=== PATIENT | female | born 1940 | race Caucasian/White ===

== ENCOUNTER 2018-08-19 11:24 | Observation (INO) | payer MEDICARE, OTHER ==
[~2018-08-19] VITALS: Ht 165.1 cm; Wt 56.3 kg
--- NOTE | 2018-08-19 11:36 | NUR ---
Pt brought in by EMS with "complaints of flu like symptoms for 2 to 3 weeks of nausea, vomitting, and soft stools yesterday with no appetite." Pt states, "I have a uti". Pt denies treatment for UTI by provider at this time. Pt denies cp, sob, trauma, blood in emesis, blood in urine or stool. Pt connected to all monitors. Pt is afebrile, tachycardic in the 90's, and spo2% between 88-92 % on room air. No requests at this time. All safety measures in place. Call light within reach. Warm blanket provided for comfort measures.
[2018-08-19] MEDS ORDERED: SODIUM CHLORIDE 0.9% 1,000 ML IV ONE (11:58)
[2018-08-19] MEDS ORDERED: SODIUM CHLORIDE FLUSH 10ML SYR IVF ONE (12:00)
[2018-08-19 12:29] LABS: BASOPHILS # (AUTO) 0.01 x10^3/uL (0-0.1); BASOPHILS % (AUTO) 0 % (0-1); EOSINOPHILS # (AUTO) 0.09 x10^3/uL (0-0.4); EOSINOPHILS % (AUTO) 2 % (1-7); LYMPHOCYTES # (AUTO) 1.18 x10^3/uL (1-3.4); LYMPHOCYTES % (AUTO) 20 % (22-44); MD NO; MEAN CORPUSCULAR HEMOGLOBIN 24.2 pg (27.0-34.8); MEAN CORPUSCULAR HGB CONC 31.7 g/dL (32.4-35.8); MEAN CORPUSCULAR VOLUME 76.4 fL (80-100); MEAN PLATELET VOLUME 8.1 fL (7.4-10.4); MONOCYTES % (AUTO) 10 % (2-9); NEUTROPHILS # (AUTO) 4.16 x10^3/uL (1.8-6.8); NEUTROPHILS % (AUTO) 69 % (42-75); PLATELET COUNT 315 x10^3/uL (130-400); RED BLOOD COUNT 4.94 x10^6/uL (3.82-5.3); RED CELL DISTRIBUTION WIDTH 19.1 % (9.6-15.2)
[2018-08-19 12:40] LABS: ALANINE AMINOTRANSFERASE 20 U/L (12-78); ALBUMIN 3.4 g/dL (3.4-5.0); ANION GAP 8 mmol/L (5-15); CALCIUM 9.2 mg/dL (8.5-10.1); CHLORIDE 103 mmol/L (98-107)
[2018-08-19 12:51] LABS: ALKALINE PHOSPHATASE 95 U/L (45-117); BILIRUBIN,TOTAL 0.5 mg/dL (0.2-1.0); CREATININE 0.61 mg/dL (0.55-1.02); THYROID STIMULATING HORMONE 0.056 mIU/L (0.358-3.740); TOTAL PROTEIN 6.9 g/dL (6.4-8.2)
--- NOTE | 2018-08-19 13:31 | NUR ---
TASK RN - RITCHIE DAVIES PER ORDER USING BRUSH WORKER. CP MONITORS IN PLACE, RESTING ON GURNEY, CALL LIGHT IN REACH. ALL CONCERNS ADRESSED. VSS
[2018-08-19 13:56] LABS: MICROSCOPIC INDICATED
[2018-08-19] MEDS ORDERED: CEFTRIAXONE PMX 1GM/50ML 50 ML IV ONE (14:00)
[2018-08-19 14:23] LABS: CULTURE INDICATED? YES
[2018-08-19] MEDS ORDERED: ONDANSETRON 2MG/ML, 2ML IVPush PRN (14:30)
[2018-08-19] MEDS ORDERED: DOCUSATE 100 MG CAPSULE PO PRN (14:30)
[2018-08-19] MEDS ORDERED: IBUPROFEN 600 MG TABLET PO PRN (14:30)
[2018-08-19] MEDS ORDERED: ONDANSETRON ODT 4 MG PO PRN (14:30)
[2018-08-19] MEDS ORDERED: PLEASE ENTER ALLERGIES MC SCH (14:30)
[2018-08-19] MEDS ORDERED: GUAIFENESIN/DM 200-20MG, 10ML UDC PO PRN (14:30)
[2018-08-19] MEDS ORDERED: ACETAMINOPHEN 325 MG TABLET PO PRN (14:30)
[2018-08-19] MEDS ORDERED: hydrALAzine 20 MG/ML, 1ML IVPush PRN (14:30)
--- NOTE | 2018-08-19 14:53 | NUR ---
Provided report to Kyung WOODWARD. All questions answered. Pt ready to transfer to floor from ER.
[2018-08-19] MEDS ORDERED: OXYC20TA42 PO (15:00)
[2018-08-19] MEDS ORDERED: TIOT18CA INH (15:00)
[2018-08-19] MEDS ORDERED: LANS30CA PO (15:00)
[2018-08-19] MEDS ORDERED: VITAMIN D (15:00)
[2018-08-19] MEDS ORDERED: SIMV20TA3 PO (15:00)
[2018-08-19] MEDS ORDERED: LISI40TA PO (15:00)
[2018-08-19] MEDS ORDERED: DULO60CA7 PO (15:00)
[2018-08-19] MEDS ORDERED: ASPI-496 PO (15:00)
[2018-08-19] MEDS ORDERED: NORT10CA PO (15:00)
[2018-08-19] MEDS ORDERED: FLUT1DIS3 INH (15:00)
[2018-08-19] MEDS ORDERED: HYDR-3245 PO (15:00)
[2018-08-19] MEDS ORDERED: FLUT9.9S NS (15:00)
--- NOTE | 2018-08-19 16:02 | NUR ---
Late note entry for 1545: Pt transfered to floor from ER and left with all personal belongings.
[2018-08-19 16:11] VITALS: BP 142/82
[2018-08-19 16:17] LABS: HEMOGLOBIN A1C 6.3 % (4.2-6.3)
[2018-08-19] MEDS ORDERED: CEFTRIAXONE PMX 1GM/50ML 50 ML IV SCH (16:30)
[2018-08-19 20:01] VITALS: BP 137/64
[2018-08-19] MEDS: OxyconTIN ER 20 MG TAB.ER PO SCH (20:01)
[2018-08-19] MEDS: FAMOTIDINE 20 MG TABLET PO SCH (20:02)
[2018-08-19 20:39] LABS: RAPID INFLUENZA A Negative (Negative); RAPID INFLUENZA B Negative (Negative)
[2018-08-19] MEDS ORDERED: TEMPLATE NON-FORMULARY MED. (Lansoprazole** 30 MG) PO SCH (21:00)
[2018-08-19] MEDS ORDERED: SIMVASTATIN 20 MG TABLET PO SCH (21:00)
[2018-08-19] MEDS ORDERED: NORTRIPTYLINE 10 MG CAPSULE PO SCH (21:00)
[2018-08-19 22:45] VITALS: BP 131/70
[2018-08-20 02:18] VITALS: BP 142/66
[2018-08-20 05:23] LABS: BASOPHILS # (AUTO) 0.03 x10^3/uL (0-0.1); BASOPHILS % (AUTO) 1 % (0-1); EOSINOPHILS # (AUTO) 0.14 x10^3/uL (0-0.4); EOSINOPHILS % (AUTO) 3 % (1-7); LYMPHOCYTES # (AUTO) 1.32 x10^3/uL (1-3.4); LYMPHOCYTES % (AUTO) 25 % (22-44); MD NO; MEAN CORPUSCULAR HEMOGLOBIN 24.6 pg (27.0-34.8); MEAN CORPUSCULAR VOLUME 76.8 fL (80-100); MEAN PLATELET VOLUME 8.1 fL (7.4-10.4); MONOCYTES # (AUTO) 0.65 x10^3/uL (0.2-0.8); MONOCYTES % (AUTO) 12 % (2-9); NEUTROPHILS # (AUTO) 3.12 x10^3/uL (1.8-6.8); NEUTROPHILS % (AUTO) 59 % (42-75); PLATELET COUNT 249 x10^3/uL (130-400); RED BLOOD COUNT 4.26 x10^6/uL (3.82-5.3); RED CELL DISTRIBUTION WIDTH 18.5 % (9.6-15.2)
[2018-08-20 05:28] LABS: ANION GAP 8 mmol/L (5-15); CALCIUM 8.9 mg/dL (8.5-10.1); CHLORIDE 107 mmol/L (98-107); CREATININE 0.54 mg/dL (0.55-1.02)
[2018-08-20] MEDS ORDERED: PANTOPROZOLE 40MG TABLET PO SCH (06:00)
[2018-08-20] MEDS: FAMOTIDINE 20 MG TABLET PO SCH (08:04)
[2018-08-20] MEDS: OxyconTIN ER 20 MG TAB.ER PO SCH (08:04)
[2018-08-20 08:07] VITALS: BP 146/73
[2018-08-20] MEDS ORDERED: ASPIRIN 81 MG TABLET EC PO SCH (09:00)
[2018-08-20] MEDS ORDERED: DULOXETINE 30 MG CAPSULE.DR PO SCH (09:00)
[2018-08-20] MEDS ORDERED: FLUTICASONE NASAL SPRAY 16GM NAS SCH (09:00)
[2018-08-20] MEDS ORDERED: LISINOPRIL 20 MG TABLET PO SCH (09:00)
[2018-08-20] MEDS ORDERED: CEFDINIR 300 MG CAPSULE PO SCH (09:30)
[2018-08-20] MEDS ORDERED: CEFD300C37 PO (10:18)
[2018-08-20] MEDS ORDERED: ONDA4TAB7 PO (10:18)
[2018-08-20] MEDS ORDERED: LOPE2CAP PO (10:18)
== END 2018-08-20 13:45 | disposition home or self-care (01) ==
LOC: ED 14:19 → INTOOBSV 14:20 → EDIP 14:20 → 5SO 15:44 → 4NOR 22:28 → DCLOUNGE 08-20 13:35
PROVIDERS: ADMIT Internal Medicine; ATTEND Internal Medicine
DX: N39.0 Urinary tract infection, site not specified (principal); J44.9 Chronic obstructive pulmonary disease, unspecified; F32.9 Major depressive disorder, single episode, unspecified; F41.9 Anxiety disorder, unspecified; G89.4 Chronic pain syndrome; I10 Essential (primary) hypertension; E78.5 Hyperlipidemia, unspecified; R19.7 Diarrhea, unspecified; R73.9 Hyperglycemia, unspecified
CPT/HCPCS: 36415; 71045; 80048; 80053; 80074; 81001; 83036; 83605; 83735; 84439; 84443; 85025; 87040; 87077; 87086; 87186; 87400; 87806; 93005; 96361; 96365; 97165; 99284; G0378; G8978; G8979; G8980; J0696; J7030; 99285; G0475